=== PATIENT | male | born 1985 | race Caucasian/White ===

== ENCOUNTER 2019-02-21 10:03 | Emergency (ER) | payer SELFPAY ==
[2019-02-21] MEDS: IBUPROFEN 600 MG TAB PO (11:39)
== END 2019-02-21 12:54 | disposition home or self-care (01) ==
LOC: FTE 10:03
DX: S99.911A Unspecified injury of right ankle, initial encounter (principal); X58.XXXA Exposure to other specified factors, initial encounter; Y92.9 Unspecified place or not applicable
CPT/HCPCS: 73610; 73610-RT; 99283-25